=== PATIENT | female | born 1995 | race Caucasian/White ===

== ENCOUNTER 2021-01-13 16:31 | Outpatient (CLI) | payer OTHER ==
[~2021-01-13] VITALS: Ht 170.2 cm; Wt 89.9 kg
[2021-01-13 16:57] VITALS: BP 133/81
[2021-01-13] MEDS ORDERED: FERR325T3 PO (17:32)
[2021-01-13] MEDS ORDERED: VIT1TABL2 PO (17:32)
[2021-01-13] MEDS ORDERED: PRENTAB9 PO (17:32)
--- NOTE | 2021-01-13 18:21 | IPNPDOC ---
Text Note Date of Service The patient was seen on 01/13/21. NOTE 25yo at 38+1wks presenting for c/o painful ctx's q2-4min apart. She reports having her membranes stripped 2x in clinic today at 1100 and 1400. Endorses spotting VB. Denies DFM and LOF. Vitals: normotensive, afebrile NST: reactive [place]: ctx's q2-5min PE: General: well-appearing but wincing in pain from contractions when they occur. AAOx3 HEENT: NC/AT airway patent and self-maintained CARDS: well-perfused RESP: no exaggerated respiratory effort noted ABD: soft, nontender, gravid : NEFG, no abnml vaginal discharge, scant VB on glove, cervix 70/-3 Ext: no edema A/P: 25yo at 38+1wks presenting for contractions. Patient not in active labor. status reassuring. Patient counseled on FKCs, labor precautions Patient to f/u for [facility] appt in 1 week All questions answered. Med rec done. VS,Fishbone, I+O VS, Fishbone, I+O Vital Signs Date Time Temp Pulse Resp B/P (MAP) Pulse Ox O2 Delivery O2 Flow Rate FiO2 01/13/21 16:57 98.8 60 16 133/81 (98) MALCOLM MORAN DO Jan 13, 2021 18:21
[2021-01-14] MEDS ORDERED: ZOLO25TA PO (05:18)
[2021-01-14] MEDS ORDERED: TUMS500C PO (05:18)
== END 2021-01-13 18:15 | disposition home or self-care (01) ==
LOC: M LDO 16:31
DX: O47.1 False labor at or after 37 completed weeks of gestation (principal); Z3A.38 38 weeks gestation of pregnancy; O26.853 Spotting complicating pregnancy, third trimester
CPT/HCPCS: 59025; G0378; G0463

== ENCOUNTER 2021-01-13 23:26 | Inpatient (IN) | payer OTHER ==
[~2021-01-13] VITALS: Ht 170.2 cm; Wt 88.7 kg
[~2021-01-13 23:26] MED LIST: FERR325T3 PO; PRENTAB9 PO; VIT1TABL2 PO
[2021-01-14] VITALS (52 sets, daily range): BP systolic 84–140; BP diastolic 47–83
[2021-01-14 01:45] LABS: HEMATOCRIT 37.6 % (36.0-47.0); HEMOGLOBIN 12.4 g/dl (12.0-15.5); MEAN CORPUSCULAR HEMOGLOBIN 28.4 pg (27.0-33.0); MEAN CORPUSCULAR VOLUME 86.2 fl (80.0-96.0); PLATELET COUNT, AUTOMATED 241 10^3/uL (150-450); RED BLOOD COUNT 4.36 10^6/uL (4.00-5.40); WHITE BLOOD COUNT 16.6 10^3/uL (4.0-10.0)
--- NOTE | 2021-01-14 02:22 | HPEPDOC ---
Obstetrical History & Physical General Date of Admission Jan 14, 2021 at 00:49 History of Present Illness 25yo at 38+2wks presenting for worsening painful ctx's. She was seen in [facility] today where she had membrane stripping completed by [facility] and in L&D triage earlier today but was noted to be consistently 2cm cervical dilation. She reports her ctx's have since worsened to now q1-3min apart. She denies VB, LOF, or DFM. She requests unmedicated delivery at this time. Chief Complaint: Contractions, term Information Provided By: Patient Care Care: Good Care Dating Final EDC: Jan 14, 2021 Final EDC for Daily Update: Jan 14, 2021 Antepartum Course Diagnos(e)s Anemia complicating Mental disorders complicating Height (inches): 67 Pre- weight (lbs.): 173 Admission Weight (lbs.): 200 Change in Weight (lbs.): 27 Past Medical History Past Obstetrical History : Past Obstetrical History: Primgrav[employer] History: No pertinent history Past Medical History Medical History Chronic hip pain Depression GERD Anemia Surgical History: Denies/None Family History Significant Family History: Noncontributory Social History Marital Status: Family situation: Spouse/partner home Psychosocial History: Depression * Smoker: non-smoker Alcohol: Denies Drugs: denies Abuse Violence Screening Have you been hit/kicked/slapp: No Have you been sexually assault: No Imunizations Tdap status: current (11/02/2020) Influenza Status: declined Allergies Coded Allergies: No Known Allergies (Unverified , 01/13/21) Medications Scheduled Ferrous Sulfate (Ferrous Sulfate) 325 Mg Tablet.dr, 325 MG PO DAILY No.137/Iron/Folic Acd ( Vitamin Tablet) 1 Each Tablet, 1 TAB PO DAILY Vit C/Rut/Hesp Cmp/Bioflav,Cit (Special C 500 mg Tablet) 1 Each Tablet, 1 EACH PO DAILY Physical Examination Physical Examination GENERAL: Alert and oriented times three. ABDOMEN: Gravid and non-tender to touch. FETUS: Is vertex (VTX) by sterile vaginal examination (SVE), fetus is vertex ( VTX) by Steven. CARDS: well-perfused RESP: no exaggerated respiratory effort, breathing through contractions : NEFG with SVE 4/c/0 EXTREMITIES: +1/4 pedal edema Vital Signs/I&O Vital Signs Date Time Temp Pulse Resp B/P (MAP) Pulse Ox O2 Delivery O2 Flow Rate FiO2 01/14/21 00:09 98.9 73 16 108/62 (77) Laboratory Data 24H LABS Laboratory Tests 2 01/14/21 00:51: Serology Scanned Report Hepatitis B Testing Urine Culture: No Growth Pertinent Laboratoy Data Blood Type: A+ RBC Antibody Screen: Negative HIV: Negative Hepatitis B: Negative Rapid Plasma Reagin: Nonreactive Rubella: Immune Varicella: Immune Chlamydia/Gonorrhea: Negative Group B Streptococcus: Negative Quad Screen Test: Declined Cystic Fibrosis: Negative Glucose Tolerance Test: 107 Anatomy Ultrasound Placenta Location: Posterior Normal Anatomy: Yes Vaginal Examination Dilation: 4 cm Effacement: 100% Station: 0 Cervical Consistency: Soft Cervical Position: Middle Presentation: Cephalic presentation Assessment Heart Rate (FHR): 140 Variability: Moderate Accelerations: Positive Decelerations: None Tocometer Contractions: Yes Frequency: every 1-3 min. Multi-drug resistant Organism: No history of MDRO Assessment/Plan Assessment Shikha is a 25yo at 38+2wks presenting for worsening painful ctx's. Patient has made spontaneous cervical change from 2/70/-3 to now 4/c/0 - will admit for labor. GBS neg. On my exam, unable to palpate membranes and ?fluid on labia. Patient denies SROM. Will monitor closely. Plan Admit and orient. Facilities Technician and consent. Diet: clears Intermittent FHR monitoring per SOP Group B Streptococcus (GBS) negative. Labs and intravenous (IV) per unit protocol. Counseled on Pitocin and induction of labor (IOL). Lactated Ringers (LR): Bolus 1000mL, then at 125 mL/hr. Anticipate normal spontaneous delivery (). C-S as appropriate. MALCOLM MORAN DO Jan 14, 2021 02:22
[2021-01-14] MEDS ORDERED: FENTANYL 2MCG/ML ROPIVACAINE 0.2% IN 0.9% NACL 100ML IVBAG As Ordered ONE (03:02)
[2021-01-14] MEDS ORDERED: ePHEDrine SULFATE 25 MG/5 ML(5MG/ML) SYRINGE As Ordered ONE (04:19)
[2021-01-14] MEDS: ePHEDrine SULFATE 25 MG/5 ML(5MG/ML) SYRINGE IV PRN ×2 (04:20→04:25)
[2021-01-14] MEDS: FENTANYL/ROPIVACAINE/NACL BAG 100 ML EPIDURAL SCH ×2 (04:28→12:19)
[2021-01-14] MEDS ORDERED: EPIDURAL COMMENT XX SCH (04:30)
[2021-01-14] MEDS ORDERED: ONDANSETRON 4MG/2ML VIAL IV PRN (04:30)
[2021-01-14] MEDS ORDERED: EPIDURAL/PCA KEYS XX PRN (04:30)
[2021-01-14] MEDS ORDERED: REFRIGERATOR IV KEYS XX PRN (04:30)
[2021-01-14] MEDS ORDERED: NALOXONE INJ 0.4MG/1ML VIAL (J2310 PER 1MG) IV PRN (04:30)
[2021-01-14] MEDS ORDERED: LACTATED RINGER'S 1000 ML IV PRN (04:30)
[2021-01-14] MEDS ORDERED: diphenhydrAMINE 50MG/ML VIAL (J1200) IV PRN (04:30)
[2021-01-14] MEDS ORDERED: TUMS500C PO (05:18)
[2021-01-14] MEDS ORDERED: ZOLO25TA PO (05:18)
--- NOTE | 2021-01-14 08:11 | IPNPDOC ---
Obstetrical Progress Note Date of Service Jan 14, 2021 Subjective Acccepting care of this 25yo at 38+2wks who was admitted for labor at term. has epidural in place and is comfortable. FHT: 140, Mod sully,+accels, -Decels---cat I tracing SVE: 6/C/0, SROM with clear fluids at 0750? [place]: 3-10, no pitocin A/P Cat I tracing, active labor at this time. afibrile. will recheck in 2hrs, if unchanged, will start pitocin. Anticipate . Objective Vital Signs Date Time Temp Pulse Resp B/P (MAP) Pulse Ox O2 Delivery O2 Flow Rate FiO2 01/14/21 07:16 98.9 61 16 100/56 (71) 98 Room Air ASIF BURRIS MD Jan 14, 2021 08:11
--- NOTE | 2021-01-14 10:06 | IPNPDOC ---
Obstetrical Progress Note Date of Service Jan 14, 2021 Subjective To room for assessment. patient continue to feel comfortable in bed. she in feeling more pressure with contractions. FHT: 150, Mod sully,+accels, -Decels0---CAT I tracing SVE: 8/C/+1 [place]: 4-5/10 A/P Cat I tracing. continue to progress in active labor appropriately. no need for pitocin at this time. continue active management of labor. Objective Vital Signs Date Time Temp Pulse Resp B/P (MAP) Pulse Ox O2 Delivery O2 Flow Rate FiO2 01/14/21 09:46 99 16 115/63 (80) 01/14/21 07:16 98.9 98 Room Air ASIF BURRIS MD Jan 14, 2021 10:06
[2021-01-14] MEDS ORDERED: OXYTOCIN DRIP 30 UNITS in IV 1 EA IV SCH ×2 (12:25→14:38)
[2021-01-14] MEDS ORDERED: IBUPROFEN 800 MG TAB PO PRN (14:40)
[2021-01-14] MEDS ORDERED: ACETAMINOPHEN 500 MG TAB PO PRN (14:40)
[2021-01-14] MEDS ORDERED: DIBUCAINE 1% OINTMENT 30GM TOP PRN (14:40)
[2021-01-14] MEDS ORDERED: METHYLERGONOVINE MALEATE 0.2 MG TAB PO PRN (14:40)
[2021-01-14] MEDS ORDERED: MOM 30ML SUSPENSION UDC PO PRN (14:40)
--- NOTE | 2021-01-14 14:47 | DNPDOC ---
[facility] Delivery Note Delivery Note DATE OF DELIVERY: 01/14/2021 PREDELIVERY DIAGNOSIS: 38-2/7 weeks' gestation and labor. POST DELIVERY DIAGNOSIS: Delivered. PROCEDURE: Spontaneous vaginal delivery LAB[facility]ER [facility] HOUSE: Dr. Asif Burris MD ANESTHESIA: Epidural. ESTIMATED BLOOD LOSS: 150mL. FINDINGS: 7 pound 1 ounce ( 3210g) male , Score 8/9 DELIVERY SUMMARY: Patient is a 25-year-old 1 now para 1001 who was admitted to labor and delivery for LABOR. She progressed to C/C/+2 and with good maternal effort delivered a viable male infant. The infants head delivered OA and the head was allowed to spontaneously restitute [place]SH[place]. Anterior shoulders delivered with gentle downward traction followed by posterior shoulder and corpus without difficulty. Normal 3- vessel cord clamped x 2 and cut by FOB after 1 minute of delayed cord clamping. Spontaneous cry noted. Infant placed on maternal abdomen for [id number] . Placenta delivered spontaneously and inspection of the placenta demonstrated that it was intact. The cord insertion appeared normal. The uterus was cleared of all clots and debris. Fundal massage until firm. 30 units of Pitocin administered per protocol and the patient required no additional uterotonics. Inspection of cervix, perineum, and vaginal wall revealed 1st degree laceration and was repaired in the usual fashion with a 2-0 vicryl. . Repeat uterine examination noted uterine tone to be adequate and firm. Mom and infant stayed in L&D in hemodynamic stable condition upon my departure. Sponge, lap and needle count correct x 2. FATUMA OBGYGiovanny Staff ASIF BURRIS MD Jan 14, 2021 14:47
[2021-01-14] MEDS: FERROUS SULFATE 325MG TAB PO SCH (16:38)
[2021-01-14] MEDS: PRENATAL VITAMINS CHEWABLE TABLET PO SCH (16:38)
[2021-01-14] MEDS: DOCUSATE SODIUM 100MG CAPSULE PO SCH (21:00)
[2021-01-15 06:00] VITALS: BP 123/67
--- NOTE | 2021-01-15 07:29 | IPNPDOC ---
Progress Note Date of Service: Jan 15, 2021 Day#: 1 Progress Note SUBJECT: 25-year-old 1 now Para 1 status post uncomplicated spontaneous vaginal delivery at 38.2 weeks' at approximately 1400hours on 01/14/2021 of a male 7pounds 1 ounces 3210 grams) , doing well day # 1. She has been ambulating, voiding spontaneously without issue and tolerating regular diet. Breast feeding without issue. Reports lochia is [like a normal period]. Patient is ambulating well. [Reports some cramping with . Denies any pain. Voiding and stooling without difficulty]. OBJECTIVE: VITAL SIGNS: Within normal limits, afebrile. Alert and oriented times three. Breath sounds clear to auscultation. Heart rate: Regular rate and rhythm, no murmurs, rubs or gallops. Abdomen: Fundus firm at U-2. Soft, NTTP. [Minimal] lochia. ASSESSMENT: 25-year-old 1 now Para 1 status post uncomplicated spo ntaneous vaginal delivery after presenting in active labor with spontaneous rupture of membranes (SROM), delivered at 1400 hours and 38.2 weeks', doing well on day 1 Vitals within normal limits, afebrile, hemodynamically stable with no evidence of infection. PLAN: 1. Discharge to home tomorrow 2. Tylenol and Motrin for pain. 3. Encourage breast feeding and ambulation. 4. contraception discussion 6 week pp visit 5. Routine PP visit in 6 weeks in clinic. 6. Discussed return precautions at length. VS, I&O, 24H, Fishbone Vital Signs/I&O Item Value Date Time White Blood Count 16.6 10^3/uL H 01/14/21 0010 Red Blood Count 4.36 10^6/uL 01/14/21 0010 Hemoglobin 12.4 g/dl 01/14/21 0010 Hematocrit 37.6 % 01/14/21 0010 Mean Corpuscular Volume 86.2 fl 01/14/21 0010 Mean Corpuscular Hemoglobin 28.4 pg 01/14/21 0010 Mean Corpuscular Hemoglobin Concent 33.0 g/dl 01/14/21 0010 Red Cell Distribution Width 14.4 % 01/14/21 001 Platelet Count 241 10^3/uL 01/14/21 0010 Nucleated Red Blood Cells % (auto) 0.0 % 01/14/21 0010 Vital Signs Date Time Temp Pulse Resp B/P (MAP) Pulse Ox O2 Delivery O2 Flow Rate FiO2 01/15/21 06:00 96.3 56 16 123/67 (85) 01/14/21 18:00 97 Room Air I&O- Last 24 Hours up to 6 AM 01/15/21 06:00 Intake Total 2377 ml Output Total 2450 ml Balance -73 ml Zak Monroy MD Jan 15, 2021 07:29
[2021-01-15] MEDS: PRENATAL VITAMINS CHEWABLE TABLET PO SCH (08:07)
[2021-01-15] MEDS: DOCUSATE SODIUM 100MG CAPSULE PO SCH ×2 (08:07→20:38)
[2021-01-15] MEDS: FERROUS SULFATE 325MG TAB PO SCH (08:07)
[2021-01-15 17:59] VITALS: BP 125/72
--- NOTE | 2021-01-16 05:18 | IPNPDOC ---
Progress Note Date of Service: Jan 16, 2021 Day#: 2 Progress Note SUBJECT: Ms. Riggs is a 25yo day 2 after vaginal delivery co mplicated by first degree laceration. Her was complicated by anemia and depression. She has been ambulating, voiding spontaneously without issue and tolerating regular diet. Breast feeding without issue. Reports lochia is less than a normal period. Patient is ambulating well. Denies any pain. Voiding and passing flatus without difficulty. OBJECTIVE: VITAL SIGNS: Within normal limits, afebrile. Alert and oriented times three. No increased work of breathing. Non-tachycardic Abdomen: Fundus firm at U-2. Soft, NTTP. Minimal lochia pe rpatient ASSESSMENT: Ms. Riggs is a 25yo day 2 after vaginal delivery complicated by first degree laceration. Her was complicated by anemia and depression. Vitals within normal limits, afebrile, hemodynamically stable with no evidence of infection. PLAN: 1. Discharge to home today. 2. Tylenol and Motrin for pain. 3. Encourage breast feeding and ambulation. 4. Desires IUD for contraception, plan for at 6 weeks 5. Routine PP visit in 6 weeks in clinic. 6. Discussed return precautions at length. VS, I&O, 24H, Fishbone Vital Signs/I&O Vital Signs Date Time Temp Pulse Resp B/P (MAP) Pulse Ox O2 Delivery O2 Flow Rate FiO2 01/15/21 17:59 98.2 63 18 125/72 (89) 98 Room Air PRAFUL JEWELL DO Jan 16, 2021 05:18
[2021-01-16 05:48] VITALS: BP 118/68
[2021-01-16] MEDS: DOCUSATE SODIUM 100MG CAPSULE PO SCH (08:20)
[2021-01-16] MEDS: PRENATAL VITAMINS CHEWABLE TABLET PO SCH (08:20)
[2021-01-16] MEDS: FERROUS SULFATE 325MG TAB PO SCH (08:20)
== END 2021-01-16 14:25 | disposition home or self-care (01) | DRG 807 ==
LOC: M LDO 23:26 → M LDI 01-14 00:49 → M OBS 01-14 16:31
PROVIDERS: ATTEND Obstetrics & Gynecology
PROC: 10E0XZZ Delivery of Products of Conception, External Approach (ICD-10-PCS; principal; 2021-01-14)
PROC: 0HQ9XZZ Repair Perineum Skin, External Approach (ICD-10-PCS; 2021-01-14)
DX: O99.02 Anemia complicating childbirth (principal); Z37.0 Single live birth; D64.9 Anemia, unspecified; O99.344 Other mental disorders complicating childbirth; F32.9 Major depressive disorder, single episode, unspecified; Z3A.38 38 weeks gestation of pregnancy; O70.0 First degree perineal laceration during delivery